=== PATIENT | male | born 1995 | race Caucasian/White ===

== ENCOUNTER 2024-03-18 20:49 | Emergency (ER) | payer SELFPAY ==
[~2024-03-18] VITALS: Ht 182.9 cm; Wt 55.0 kg
[2024-03-18 20:52] VITALS: O2SAT 98
[2024-03-18 22:01] LABS: BASOPHILS % 0.7 % (0.0-2.0); EOSINOPHILS % 2.9 % (0.0-5.0); HEMATOCRIT. 39.2 % (42.0-52.0); HEMOGLOBIN. 13.6 g/dL (14.0-18.0); LYMPHOCYTES % 18.5 % (20.0-50.0); MEAN CORPUSCULAR HEMOGLOBIN 32.5 pg (28.0-32.0); MEAN CORPUSCULAR HGB CONC 34.7 g/dL (31.0-37.0); MEAN CORPUSCULAR VOLUME 93.5 fL (80.0-94.0); MEAN PLATELET VOLUME 9.9 fl (7.4-10.4); MONOCYTES % 10.1 % (2.0-8.0); NEUTROPHILS % 67.8 % (40.0-76.0); PLATELET 211 x1000/uL (130-400); RED CELL DISTRIBUTION WIDTH 12.7 % (11.6-14.6); WHITE BLOOD COUNT 8.8 x1000/uL (4.5-11.0)
[2024-03-18 22:07] LABS: CHLORIDE 108 mEq/L (98-107); POTASSIUM 3.4 mEq/L (3.5-5.1); SODIUM 140 mEq/L (136-145)
[2024-03-18 22:08] LABS: CARBON DIOXIDE 25 mEq/L (21-32)
[2024-03-18 22:09] LABS: CALCIUM 8.4 mg/dL (8.7-10.4)
[2024-03-18 22:13] LABS: CREATININE 0.9 mg/dL (0.6-1.3); GLUCOSE 108 mg/dL (70-105); UREA NITROGEN BLOOD 14 mg/dL (9-23)
[2024-03-18] MEDS: SODIUM CHLORIDE 0.9% 1,000 ML IV ONE (22:14)
[2024-03-18 22:15] LABS: ALANINE AMINOTRANSFERASE 62 IU/L (10-49); ASPARTATE AMINOTRANSFERASE 40 IU/L (<34)
[2024-03-18 22:16] LABS: BILIRUBIN DIRECT 0.1 mg/dL (<=3.0); BILIRUBIN TOTAL 0.4 mg/dL (0.1-1.0)
[2024-03-18 22:21] LABS: TROPONIN I HIGH SENSITIVITY < 4 ng/L (3.0-53)
[2024-03-19 01:05] VITALS: TEMP 98.1
[2024-03-19 01:25] VITALS: BP 104/64; PULSE 63; RESP 16
[2024-03-19 02:50] LABS: COLOR URINE YELLOW (YELLOW)
[2024-03-19 02:51] LABS: CLARITY URINE CLEAR (CLEAR); GLUCOSE URINE NEGATIVE (NEGATIVE); KETONES URINE NEGATIVE (NEGATIVE); LEUKOCYTE ESTERASE URINE NEGATIVE (NEGATIVE); NITRITE URINE NEGATIVE (NEGATIVE); OCCULT BLOOD URINE NEGATIVE (NEGATIVE); PROTEIN URINE NEGATIVE (NEGATIVE); SPECIFIC GRAVITY URINE 1.018 (1.005-1.030); UROBILINOGEN URINE 0.2 E.U./dL (0.2-1.0)
== END 2024-03-19 01:26 | disposition home or self-care (01) ==
LOC: ER 20:49
DX: I95.89 Other hypotension (principal); R55 Syncope and collapse
CPT/HCPCS: 99285; 96360; 80076; 80048; 81003; 83605; 85025; 84484; 36415; 93005; J7030